=== PATIENT | female | born 1950 | race Caucasian/White ===

== ENCOUNTER → 2018-02-27 09:04 | Outpatient (REF) | payer OTHER, SELFPAY ==
[2018-02-27 14:31] LABS: ALT 19 U/L (12-78); AST 14 U/L (15-37); Albumin 3.4 g/dL (3.4-5.0); Alkaline Phosphatase 121 U/L (46-116); Anion Gap 5.3 mmol/L (3-11); BUN 8 mg/dL (7-18); Bilirubin, Total 0.2 mg/dL (0.2-1.0); CO2 32.7 mmol/L (21.0-32.0); CREATININE 0.71 mg/dL (0.55-1.02); Chloride 103 mmol/L (98-107); Cholesterol 265 mg/dL (50-200); Glucose 98 mg/dL (70-100); HDL Cholesterol 45 mg/dL (40-60); LDL CHOLESTEROL 190 mg/dL (<100); Potassium 4.2 mmol/L (3.5-5.1); Sodium 141 mmol/L (136-145); Total Protein 6.9 g/dL (6.4-8.2); Triglyceride 181 mg/dL (30-150)
== END ==
LOC: NCHCN 09:04
PROVIDERS: PCP Nurse Practitioner; Visit Provider Nurse Practitioner
DX: E78.5 Hyperlipidemia, unspecified (principal)
CPT/HCPCS: 80053; 80061; 83721

== ENCOUNTER 2018-03-12 00:15 | Outpatient (CLI) | payer OTHER, SELFPAY ==
--- NOTE | 2018-03-12 15:30 | DI.MAMMO_ITS ---
SYMPTOMS/DIAGNOSIS: SCREENING, Z12.39 BILATERAL SCREENING MAMMOGRAM: Mammograms were interpreted according to the usual protocol including computer analysis with CAD system, tomosynthesis and C view imaging. Comparison is made with exams from 2010 and 2016. The breasts are composed of scattered fibroglandular densities, breast density category B. In the lateral right breast, there is an area of nodular increased density laterally on this exam. No abnormality is seen on the MLO view. Spot compression views and ultrasound are requested for further evaluation. No change is seen in the left breast. IMPRESSION: Left breast category 1, negative. Right breast category 0. MQSA ASSESSMENT OF FINDINGS: Incomplete: Needs additional imaging evaluation. Category 0. Patient will receive a letter notifying them of these results. MQSA ASSESSMENT OF FINDINGS: Negative. Category 1. Patient will receive a letter notifying them of these results. BI-RADS category B. There are scattered areas of fibroglandular density.
== END 2018-03-12 00:35 ==
PROVIDERS: PCP Nurse Practitioner; Visit Provider Nurse Practitioner
DX: Z12.31 Encounter for screening mammogram for malignant neoplasm of breast (principal); R92.8 Other abnormal and inconclusive findings on diagnostic imaging of breast
CPT/HCPCS: 77063; 77067

== ENCOUNTER 2018-03-15 00:37 | Outpatient (CLI) | payer OTHER, SELFPAY ==
--- NOTE | 2018-03-15 14:35 | DI.COMBO_ITS ---
SYMPTOMS/DIAGNOSIS: F/U ABNORMAL MAMMO, AREA OF NODULAR INCREASED DENSITY LATERALLY ADDITIONAL VIEWS OF THE RIGHT BREAST AND RIGHT BREAST ULTRASOUND: Additional images are interpreted according to the usual protocol including tomosynthesis and 2D imaging. Comparison is with prior examinations. Breast density B No persistent mass is seen on the additional views of the right breast. A right breast ultrasound was performed. The upper outer and lower outer quadrants of the right breast were evaluated sonographically. No cystic or solid masses are seen sonographically. IMPRESSION: No evidence for malignancy. A six-month follow-up right mammogram was requested for reevaluation. Category 3. The findings were discussed with the patient on the date of the examination. MQSA ASSESSMENT OF FINDINGS: Probably benign. Six month follow-up recommended. Category 3. Patient will receive a letter notifying them of these results. BI-RADS category B. There are scattered areas of fibroglandular density.
== END 2018-03-15 00:57 ==
PROVIDERS: PCP Nurse Practitioner; Visit Provider Nurse Practitioner
DX: Z12.31 Encounter for screening mammogram for malignant neoplasm of breast (principal); R92.8 Other abnormal and inconclusive findings on diagnostic imaging of breast; N64.59 Other signs and symptoms in breast
CPT/HCPCS: 76642; 77063; 77067

== ENCOUNTER 2018-09-20 00:41 | Outpatient (CLI) | payer OTHER, SELFPAY ==
--- NOTE | 2018-09-20 11:27 | DI.COMBO_ITS ---
SYMPTOMS/DIAGNOSIS: 6-MO F/U ABNORMAL RIGHT BREAST MAMMO, R92.8 ADDITIONAL VIEWS OF THE RIGHT BREAST AND RIGHT BREAST ULTRASOUND: Right breast mammogram: A follow-up rolled medial CC projection of the right breast was obtained today and there is nonspecific fibroglandular density. No definite mass is seen. Right breast ultrasound: Interrogation of the lateral right breast reveals no evidence of a cyst or mass. SUMMARY: No evidence of malignancy, category 1. Yearly screening mammography is recommended. Breast density category B. MQSA ASSESSMENT OF FINDINGS: Negative. Category 1. Patient will receive a letter notifying them of these results. BI-RADS category B. There are scattered areas of fibroglandular density.
== END 2018-09-20 01:01 ==
PROVIDERS: PCP Nurse Practitioner; Visit Provider Nurse Practitioner
DX: Z12.31 Encounter for screening mammogram for malignant neoplasm of breast (principal); R92.8 Other abnormal and inconclusive findings on diagnostic imaging of breast; N64.59 Other signs and symptoms in breast
CPT/HCPCS: 76642; 77061; 77065; G0279

== ENCOUNTER 2019-04-15 10:02 | Outpatient (REF) | payer OTHER, SELFPAY ==
[2019-04-15 13:47] LABS: Calculated LDL 113 mg/dL; Cholesterol 195 mg/dL (50-200); HDL Cholesterol 47 mg/dL (40-60); Triglyceride 177 mg/dL (30-150)
== END 2019-04-15 10:22 ==
LOC: NCHCN 10:02
PROVIDERS: PCP Nurse Practitioner; Visit Provider Nurse Practitioner
DX: E78.5 Hyperlipidemia, unspecified (principal)
CPT/HCPCS: 80061

== ENCOUNTER 2019-08-29 02:42 | Outpatient (CLI) | payer OTHER, SELFPAY ==
--- NOTE | 2019-08-29 | DI.CTLCSR_ITS ---
EXAM: CT CHEST LUNG CANCER SCREEN CLINICAL HISTORY: FORMER SMOKER, QUIT >1 YEAR, Z87.891 TECHNIQUE: Low dose noncontrast COMPARISON: No exams were available for comparison FINDINGS: Coronary artery calcifications are seen. The heart size is normal. The aorta is normal in diameter. There are no pleural or pericardial effusions or evidence of adenopathy. There are changes of mild to moderate central lobular emphysema. There is mild pulmonary scarring. There is no bronchiectasi s or evidence of infiltrate. There is atelectasis in the right middle lobe near the major fissure. The tracheobronchial tree appears intact. There are mild degenerative changes in the thoracic spine. The visualized portions of the upper abdominal organs are unremarkable. IMPRESSION: Lung rads category 1, negative. Annual low-dose screening CT is recommended.
== END 2019-08-29 03:02 ==
PROVIDERS: PCP Nurse Practitioner; Visit Provider Nurse Practitioner
DX: Z12.2 Encounter for screening for malignant neoplasm of respiratory organs (principal); Z87.891 Personal history of nicotine dependence; J43.8 Other emphysema; J98.4 Other disorders of lung
CPT/HCPCS: G0297

== ENCOUNTER 2020-04-27 12:05 | Outpatient (REF) | payer OTHER, SELFPAY ==
[2020-04-27 19:09] LABS: Vitamin D 25 Total 18.8 ng/ml (30-100)
[2020-04-27 19:13] LABS: Calculated LDL 148 mg/dL (<100); Cholesterol 237 mg/dL (<200); HDL Cholesterol 50 mg/dL (40-60); Triglyceride 195 mg/dL (<150); Vitamin B12 547 pg/mL (193-986)
== END 2020-04-27 12:25 ==
LOC: NCHCN 12:05
PROVIDERS: PCP Nurse Practitioner; Visit Provider Nurse Practitioner
DX: Z13.220 Encounter for screening for lipoid disorders (principal); K50.90 Crohn's disease, unspecified, without complications; Z13.21 Encounter for screening for nutritional disorder
CPT/HCPCS: 80061; 82306; 82607

== ENCOUNTER 2020-11-12 01:25 | Outpatient (CLI) | payer OTHER, SELFPAY ==
--- NOTE | 2020-11-12 | DI.MAMMO_ITS ---
Exam(s) MAMMO SCREENING EXAM: MAMMO SCREENING CLINICAL HISTORY: SCREENING, Z12.39. TECHNIQUE: Bilateral full field digital CC and MLO mammographic images were obtained with 3D tomosyn thesis and utilizing computer aided detection (CAD). COMPARISON: Prior mammograms dating back to 2016, the most recent being March 2018 and unilatera l diagnostic study of August 2018.. FINDINGS: Previously described asymmetric density laterally in the right breast is actually less evident on the present study, further evidence that it was benign. There are no new spiculated masses nor malignant appearing microcalcification groups. There is no significant architectural distortion nor skin thickening-retraction. IMPRESSION: No radiographic evidence of malignancy. BI-RADS Category 1 - Negative Breast Density - Category B - Scattered areas of fibroglandular density Breast density Category C or D implies that the patient has dense breast tissue. Dense breast tissue can make it harder to find cancer on a mammogram. Dense breast tissue is also associated with an incr eased risk of breast cancer. This information about the result of the mammogram report was provided to the patient to raise their awareness. Use this report when you speak with the patient about their risks for breast cancer, which includes their family history. At that time, you may recommend additional screening tests (Ultrasoun d or MRI) as these tests may add significant information. A negative radiographic report should not delay biopsy if a dominant or clinically suspicious mass is present. Up to ten percent of cancers are not identified on mammography. A negative report may reinforce clinical impression. Adenosis and dense breasts may obscure an underlying neoplasm. False positive reports average 6 to 10%. Patient will receive a letter notifying them of these results.
--- NOTE | 2020-11-12 15:20 | DI.DEXA_ITS ---
Exam(s) XR DEXA BONE DENSITY W/WO KANWAL EXAM: XR DEXA BONE DENSITY W/WO KANWAL CLINICAL HISTORY: SCREENING FOR OSTEOPOROSIS, Z13.820 TECHNIQUE: Routine DEXA evaluation of the lumbar spine, hip, or forearm. COMPARISON: No exams were available for comparison FINDINGS: Performed on a Hologic unit. Lateral image: No compression fracture evident. Lumbar Spine total T-score: -1.2 Hip total T-score:-1.6 . Independent reading at the level of the femoral neck yields a T-score of -1 .2. Forearm total T-score: -3.3 IMPRESSION: Bone mineral density measures in the osteopenia range for the lumbar spine and hip. However, somewha t osteoporotic at the level the wrist. Fracture risk is moderate-high. Note: Any spine fracture indicates 5x risk for subsequent spine fracture and 2x risk for subsequent h ip fracture. World Health Organization criteria for BMD interpretation classify patients: Normal...... T- Score at or above -1.0 Osteopenic... T- Score between -1.0 and -2.5 Osteoporosis... T-Score at or below -2.5
== END 2020-11-12 01:45 ==
PROVIDERS: PCP Nurse Practitioner; Visit Provider Nurse Practitioner
DX: M85.88 Other specified disorders of bone density and structure, other site (principal); M85.849 Other specified disorders of bone density and structure, unspecified hand; Z12.31 Encounter for screening mammogram for malignant neoplasm of breast
CPT/HCPCS: 77063; 77067; 77080

== ENCOUNTER 2021-10-25 20:08 | Outpatient (REF) | payer MEDICARE, SELFPAY ==
[2021-10-25 16:53] LABS: HCT 42.8 % (36.0-46.0); HGB 13.3 g/dL (11.2-15.7); MCH 28.2 pg (27.0-33.0); MCHC 31.1 % (32.0-36.0); MCV 90.7 fL (80-95); MPV 9.4 fL (8.0-11.0); Platelet Count 324 10^3/uL (130-400); RBC 4.72 10^6/uL (3.93-5.22); RDW 12.7 % (11.7-14.6)
[2021-10-25 18:08] LABS: ALT 19 U/L (14-59); AST 18 U/L (15-37); Albumin 4.1 g/dL (3.4-5.0); Alkaline Phosphatase 78 U/L (46-116); Anion Gap 6.4 mmol/L (3-11); BUN 12 mg/dL (7-18); Bilirubin, Total 0.5 mg/dL (0.2-1.0); CO2 30.6 mmol/L (21.0-32.0); CREATININE 0.8 mg/dL (0.55-1.02); Calcium 9.3 mg/dL (8.5-10.1); Calculated LDL 110 mg/dL (<100); Chloride 103 mmol/L (98-107); Cholesterol 192 mg/dL (<200); Glucose 94 mg/dL (74-106); HDL Cholesterol 58 mg/dL (40-60); Potassium 4.2 mmol/L (3.5-5.1); Sodium 140 mmol/L (136-145); Total Protein 7.6 g/dL (6.4-8.2); Triglyceride 123 mg/dL (<150)
== END 2021-10-25 20:09 | disposition home or self-care (01) ==
LOC: NCHCN 20:08
PROVIDERS: PCP Nurse Practitioner; Visit Provider Nurse Practitioner Family
DX: E78.5 Hyperlipidemia, unspecified (principal); K50.90 Crohn's disease, unspecified, without complications
CPT/HCPCS: 80053; 80061; 85027

== ENCOUNTER 2021-12-09 01:46 | Outpatient (CLI) | payer MEDICARE, SELFPAY ==
--- NOTE | 2021-12-09 | DI.CTLCSR_ITS ---
Exam(s) CT CHEST LUNG CANCER SCREEN EXAM: CT CHEST LUNG CANCER SCREEN CLINICAL HISTORY: FORMER SMOKER Z87.81, SCREENING FOR LUNG CANCER. TECHNIQUE: Imaging Protocol: Low Dose Technique CONTRAST MATERIAL: None COMPARISON: CT CT CHEST LUNG CANCER SCREEN from 08/29/2019 FINDINGS: CHEST: LUNGS: In the superior segment of the left lower lobe there is unchanged small pleural based infiltra te, unchanged from August 2019 and not associated with overlying rib destruction.. There is some s carring in the anterior segment of the left upper lobe which is also unchanged. No new focal left stephan ng findings. In the opposite-right lung there are benign-appearing increased markings medially in the right upper lobe, unchanged. Also mild increased markings anteriorly in the right upper lobe, also unchanged. U nchanged para cardiac right infrahilar infiltrate with air bronchograms again noted. This remains un changed. No new right lower lobe findings. No pleural effusions on either side. No new focal findi ngs trachea and mainstem bronchi. MEDIASTINUM: There is no obvious hilar nor mediastinal adenopathy. CARDIAC: Heart size is normal. There is no pericardial effusion.Coronary artery calcification noted in the left coronary artery. The diameter of the ascending thoracic aorta is upper normal. OTHER: No adrenal masses. OSSEOUS: No significant osseous lesions.No fractures.. IMPRESSION: 1. Stable benign-appearing lung findings. No new ominous nodules nor pleural effusions. 2. No new intrathoracic adenopathy 3. Lung RADS Cat 2 - Benign Appearance / Behavior: Nodules with a very low likelihood of becoming a c linically active cancer due to size or lack of growth Lung-RADS 1.0 CATEGORIES: Category 0 - Prior chest CT exam(s) being located for comparison. Category 1 - Annual screening in 12 months. No nodules or definitely benign nodules. Category 2 - Annual screening in 12 months. Benign appearance. Nodules with low likelihood of becomin g active cancer. Category 3 - 6-month follow-up. Probably benign. Short-term follow-up suggested. Nodules with low lik elihood of becoming active cancer. Category 4A - 3-month follow-up and CT/PET if >8 mm in size. Suspicious finding. Findings which requi re additional testing. Category 4B - Findings which require additional testing and tissue sampling. Category 4X - Category 3 or 4 nodules with additional features or imaging findings that increases the suspicion of malignancy. Modifier S- Potentially clinically significant findings (non lung cancer) RADIATION DOSE DELIVERED: 68.49mGy.cm Total DLP 1.84mGy CTDIvol DATA REPOSITORY: All CT scans at this facility are submitted to the National Radiology Data Registry (NRDR) Dose Index Registry (DIR) with the [employer] ([employer]). RADIATION OPTIMIZATION: All CT scans at this facility use at least one of these dose optimization te chniques: automated exposure control; mA and/or kV adjustment per patient size (includes targeted exa ms where dose is matched to clinical indication); or iterative reconstruction.
== END 2021-12-09 02:06 ==
PROVIDERS: PCP Nurse Practitioner; Visit Provider Nurse Practitioner Family
DX: Z87.891 Personal history of nicotine dependence (principal); Z12.2 Encounter for screening for malignant neoplasm of respiratory organs
CPT/HCPCS: 71271

== ENCOUNTER → 2023-03-01 00:29 | Outpatient (CLI) | payer MEDICARE, SELFPAY ==
--- NOTE | 2023-03-01 | DI.CTLCSR_ITS ---
Exam(s) CT CHEST LUNG CANCER SCREEN EXAM: CT CHEST LUNG CANCER SCREEN CLINICAL HISTORY: HX CIGARETTE SMOKER, Z87.891, BASELINE, SCREENING FOR LUNG CA TECHNIQUE: Imaging Protocol: Axial computed tomography images with coronal and sagittal reformatted images were created and reviewed. Low dose screening protocol. COMPARISON: CT CT CHEST LUNG CANCER SCREEN from 12/09/2021 FINDINGS: Tracheobronchial tree: No bronchiectasis or mucus plugging.. Mediastinum and Myra: No dominant adenopathy or fluid collection. Pulmonary parenchyma: No consolidation or dominant measurable mass. [id number] emphysematous ch anges. Stable area scarring and atelectasis with air bronchograms in the right middle lobe. Mildly increased interstitial changes. Lung Nodules: None. Pleura: No effusion. No pneumothorax. Heart: The heart is not dilated. Moderate to severe coronary artery calcifications are seen. Aorta: Thoracic aorta non-dilated.Atherosclerotic calcification. Upper abdomen: Unremarkable. Bones: Unremarkable for age. No compression fractures. Soft Tissues: Unremarkable. IMPRESSION: No suspicious pulmonary nodules. Lung RADS Cat 1 - Negative: No nodules and definitely benign nodules Lung-RADS 1.0 CATEGORIES: Category 0 - Prior chest CT exam(s) being located for comparison. Category 1 - Annual screening in 12 months. No nodules or definitely benign nodules. Category 2 - Annual screening in 12 months. Benign appearance. Nodules with low likelihood of becomin g active cancer. Category 3 - 6-month follow-up. Probably benign. Short-term follow-up suggested. Nodules with low lik elihood of becoming active cancer. Category 4A - 3-month follow-up and CT/PET if >8 mm in size. Suspicious finding. Findings which requi re additional testing. Category 4B - Findings which require additional testing and tissue sampling. Category 4X - Category 3 or 4 nodules with additional features or imaging findings that increases the suspicion of malignancy. Modifier S- Potentially clinically significant findings (non lung cancer) RADIATION DOSE DELIVERED: 72.05mGy.cm Total DLP DATA REPOSITORY: All CT scans at this facility are submitted to the National Radiology Data Registry (NRDR) Dose Index Registry (DIR) with the [employer] ([employer]). RADIATION OPTIMIZATION: All CT scans at this facility use at least one of these dose optimization te chniques: automated exposure control; mA and/or kV adjustment per patient size (includes targeted exa ms where dose is matched to clinical indication); or iterative reconstruction.
== END ==
PROVIDERS: PCP Nurse Practitioner; Visit Provider Nurse Practitioner Family
DX: Z87.891 Personal history of nicotine dependence (principal); Z12.2 Encounter for screening for malignant neoplasm of respiratory organs
CPT/HCPCS: 71271

== ENCOUNTER 2023-10-24 14:26 | Outpatient (REF) | payer MEDICARE, SELFPAY ==
[2023-10-27 14:16] LABS: Calprotectin <50.0 mcg/g
[2023-11-01 23:27] LABS: Lactoferrin, Qt, Stool <6.25 mcg/mL (<7.25)
== END 2023-10-24 14:27 | disposition home or self-care (01) ==
LOC: LBN 14:26
PROVIDERS: Visit Provider Internal Medicine Gastroenterology
DX: K50.912 Crohn's disease, unspecified, with intestinal obstruction (principal)
CPT/HCPCS: 83631; 83993

== ENCOUNTER 2024-01-15 15:12 | Outpatient (REF) | payer MEDICARE, SELFPAY ==
[2024-01-15 18:52] LABS: HCT 43.8 % (36.0-46.0); HGB 13.9 g/dL (11.2-15.7); MCH 29.4 pg (27.0-33.0); MCHC 31.7 % (32.0-36.0); MCV 93 fL (80-95); MPV 9.4 fL (8.0-11.0); Platelet Count 240 10^3/uL (130-400); RBC 4.73 10^6/uL (3.93-5.22); RDW 12.9 % (11.7-14.6); RDW-SD 43.9 fL; WBC 6.07 10^3/uL (4.4-10.8)
[2024-01-15 19:07] LABS: Iron 62 ug/dL (50-170); Total Iron Binding Capacity 289 ug/dL (250-450); Transferrin Sat 21 % (15-50)
[2024-01-15 19:19] LABS: ALT 26 U/L (14-59); AST 18 U/L (15-37); Albumin 4.1 g/dL (3.4-5.0); Alkaline Phosphatase 77 U/L (46-116); Anion Gap 8.3 mmol/L (3-11); BUN 12 mg/dL (7-18); Bilirubin, Total 0.32 mg/dL (0.2-1.0); CO2 31.7 mmol/L (21.0-32.0); CREATININE 0.9 mg/dL (0.55-1.02); Calculated LDL 70 mg/dL (<100); Chloride 105 mmol/L (98-107); Cholesterol 154 mg/dL (<200); Estimated GFR 67.92 (mL/min/1.73m2); Ferritin 153 ng/mL (8-252); Glucose 106 mg/dL (74-106); HDL Cholesterol 62 mg/dL (40-60); Potassium 4.1 mmol/L (3.5-5.1); Sodium 145 mmol/L (136-145); Total Protein 7.2 g/dL (6.4-8.2); Triglyceride 112 mg/dL (<150)
== END 2024-01-15 15:13 | disposition home or self-care (01) ==
LOC: NCHCN 15:12
PROVIDERS: PCP Nurse Practitioner Family; Visit Provider Nurse Practitioner Family
DX: E78.5 Hyperlipidemia, unspecified (principal); K50.90 Crohn's disease, unspecified, without complications; Z72.821 Inadequate sleep hygiene
CPT/HCPCS: 80053; 80061; 85027; 82728; 83540; 83550

== ENCOUNTER 2024-01-17 12:35 | Outpatient (REF) | payer MEDICARE, SELFPAY ==
[2024-01-19 17:46] LABS: Calprotectin <50.0 mcg/g
[2024-01-26 23:25] LABS: Lactoferrin, Qt, Stool <6.25 mcg/mL (<7.25)
== END 2024-01-17 12:36 | disposition home or self-care (01) ==
LOC: LBN 12:35
PROVIDERS: PCP Nurse Practitioner Family; Visit Provider Internal Medicine Gastroenterology
DX: K50.912 Crohn's disease, unspecified, with intestinal obstruction (principal); R19.4 Change in bowel habit
CPT/HCPCS: 83631; 83993

== ENCOUNTER 2025-04-01 17:14 | Outpatient (REF) | payer MEDICARE, SELFPAY ==
[2025-04-08 19:26] LABS: Lactoferrin, Qt, Stool <6.25 mcg/mL (<7.25)
== END 2025-04-01 17:15 | disposition home or self-care (01) ==
LOC: NCHCN 17:14
PROVIDERS: PCP Nurse Practitioner Family; Visit Provider Internal Medicine Gastroenterology
DX: K50.912 Crohn's disease, unspecified, with intestinal obstruction (principal); K50.918 Crohn's disease, unspecified, with other complication
CPT/HCPCS: 83631; 83993

== ENCOUNTER 2025-04-24 13:27 | Outpatient (REF) | payer MEDICARE, SELFPAY ==
[2025-04-24 15:12] LABS: Iron 86 ug/dL (50-170)
[2025-04-24 15:41] LABS: Ferritin 153 ng/mL (8-252); Magnesium 2.1 mg/dL (1.8-2.4); Vitamin B12 641 pg/mL (193-986)
== END 2025-04-24 13:28 | disposition home or self-care (01) ==
LOC: NCHCN 13:27
PROVIDERS: PCP Nurse Practitioner Family; Visit Provider Nurse Practitioner Family
DX: G57.93 Unspecified mononeuropathy of bilateral lower limbs (principal)
CPT/HCPCS: 82607; 82728; 83540; 83735

== ENCOUNTER 2025-06-11 15:23 | Outpatient (REF) | payer MEDICARE, SELFPAY ==
[2025-06-11 21:22] LABS: ALT 20 U/L (10-49); AST 23 U/L (<34); Albumin 4.5 g/dL (3.2-5.0); Alkaline Phosphatase 75 U/L (46-116); Anion Gap 7.9 mmol/L (3-11); BUN 15 mg/dL (9-23); Bilirubin, Total 0.3 mg/dL (0.2-1.2); CO2 31.1 mmol/L (20.0-31.0); Calcium 9.6 mg/dL (8.3-10.6); Chloride 105 mmol/L (98-107); Glucose 80 mg/dL (74-106); Potassium 3.8 mmol/L (3.5-5.1); Sodium 144 mmol/L (136-145); Total Protein 6.9 g/dL (5.7-8.2)
[2025-06-11 21:26] LABS: TSH (W/Ref FT4) 1.53 uIU/mL (0.55-4.78)
[2025-06-12 17:36] LABS: Microalb ug/mg Crea 38.0 ug/mg Cr
== END 2025-06-11 15:24 | disposition home or self-care (01) ==
LOC: NCHCN 15:23
PROVIDERS: PCP Nurse Practitioner Family; Visit Provider Family Medicine
DX: R03.0 Elevated blood-pressure reading, without diagnosis of hypertension (principal)
CPT/HCPCS: 80053; 82043; 82570; 84443